=== PATIENT | male | born 1965 | race Caucasian/White ===

== ENCOUNTER → 2017-03-07 | Outpatient (CLI) | payer OTHER ==
--- NOTE | ~2017-03-07 | MR164 ---
[facility] A Service of [facility] & [facility] [place] RADIOLOGY TEXT RESULTS PATIENT: HERIBERTO KULKARNI LOCATION: [facility] : 65 UNIT #: [id number] AGE: [address]: VAL JIMENEZ MD SEX: M ORDER DR: [id number] [place] [id number] O MR#: [id number] Acc #: [id number] NAME: HERIBERTO KULKARNI : 1965 SEX: M STUDY DATE/TIME: 03/07/2017 14:40 UNIT: [facility] ROOM: STUDY DESCRIPTION: MR Shoulder Wo Contrast Lt Attending Physician: Val Jimenez Do Referring Physician: Val Jimenez Do Ordering Physician: Physician Non-Staff Primary Care Physician: Ambar Hernández M.D. MRI CENTER REPORT This report is preliminary unless electronic signature is present. EXAM MRI of the left shoulder. HISTORY 51-year-old male with left-sided shoulder pain for 2 months. Decreased range of motion. Evaluate for rotator cuff tear. TECHNIQUE Multiplanar, multiecho imaging was performed of the left shoulder utilizing a high field magnet and dedicated protocol. FINDINGS Study is somewhat complicated by the patient body habitus but the study is felt to be diagnostic. Bone structure and alignment appears normal. No focal marrow edema. A small amount of glenohumeral joint fluid. Mild supraspinatus and infraspinatus tendinopathy with a partial-thickness articular-sided tear at the anterior distal insertion of the supraspinatus tendon measuring approximately 8 mm AP dimension by about 4 mm medial to lateral dimension. This involves about 50% of the thickness of the tendon. Teres minor and subscapularis tendons appear intact. No muscle atrophy or edema. Type 2 SLAP tear superior labrum estimated just over a centimeter in length. Along the anterior inferior aspect of the shoulder joint, there is a 1.2 cm bilobed cystic lesion compatible with a paralabral cyst. These are frequently associated with a labral tear but a distinct tear is not identified on this non-arthrographic study. There is probable degeneration of the anteroinferior labrum, best appreciated on the axial images. Articular cartilage appears intact. Extraarticular soft tissues appear normal. A small loose body is identified within the subscapularis recess measuring up to a centimeter. [facility]. [facility] A Service of [facility] RADIOLOGY TEXT RESULTS PATIENT: HERIBERTO KULKARNI LOCATION: [facility] : 65 UNIT #: [id number] AGE: [address]: VAL JIMENEZ MD SEX: M ORDER DR: IMPRESSION 1. 4 x 8 mm partial-thickness, articular-sided tear involving the anterior footplate insertion supraspinatus tendon superimposed on diffuse tendinopathy. 2. Mild infraspinatus tendinopathy. 3. Type 2 SLAP tear. 4. 1.2 cm paralabral cyst anterior inferior labral margin, typically associated with the tear but not directly visible on this study. There may also be a smaller paralabral cyst inferior to the larger cyst at about the 6 o'clock glenoid axis. This measures about 5 mm. If clinically warranted, MR arthrogram may be of additional benefit. 5. 1 cm loose body subscapularis recess. Dictated by... Xavier Motta M.D. THIS IS AN ELECTRONICALLY VERIFIED REPORT Xavier Motta M.D. at 03/08/2017 5:10 PM PENELOPE/apoorva TD: 03/08/2017 10:57 JOB #: [id number] MRI CENTER REPORT Page 1 of 1
== END | disposition home or self-care (01) ==
LOC: SMRI 14:11
DX: M75.102 Unspecified rotator cuff tear or rupture of left shoulder, not specified as traumatic (principal); M75.112 Incomplete rotator cuff tear or rupture of left shoulder, not specified as traumatic; M75.82 Other shoulder lesions, left shoulder; S43.432A Superior glenoid labrum lesion of left shoulder, initial encounter; M24.012 Loose body in left shoulder
CPT/HCPCS: 73221